=== PATIENT | male | born 2000 | race Caucasian/White ===

== ENCOUNTER 2023-08-06 18:52 | Emergency (ER) | payer BC ==
[2023-08-06 20:11] LABS: BASO # 0.01 K/mm3 (0.02-0.10); EOS # 0.12 K/mm3 (0.04-0.40); EOS % 1.9 % (0.0-4.0); HEMATOCRIT 45.1 % (42.0-52.0); HEMOGLOBIN 16.2 g/dL (13.5-18.0); LYMPH# 1.54 K/mm3 (1.50-4.00); MEAN CELL VOLUME 84 fl (78-100); MEAN CORPUSCULAR HEMOGLOBIN 30 pg (27-31); MEAN CORPUSCULAR HGB CONC 36 g/dL (33-37); MEAN PLATELET VOLUME 8.9 fl (7.4-10.4); MONO # 0.42 K/mm3 (0.20-0.80); NEU # 4.25 K/mm3 (1.40-6.50); PLATELET COUNT 235 K/mm3 (130-400); RED CELL DISTRIBUTION WIDTH 11.6 % (11.5-14.5); WHITE BLOOD COUNT 6.4 K/mm3 (4.8-10.8)
[2023-08-06 20:24] LABS: ALBUMIN 4.8 g/dL (3.5-5.0); SODIUM 141 mmol/L (136-145)
[2023-08-06 20:26] LABS: GLUCOSE 97 mg/dL (75-110); TOTAL PROTEIN 7.4 g/dL (6.4-8.3)
[2023-08-06 20:27] LABS: CARBON DIOXIDE 26 mmol/L (22-29)
[2023-08-06 20:28] LABS: TOTAL BILIRUBIN 0.64 mg/dL (0.2-1.2)
[2023-08-06 20:32] LABS: AST-SGOT 23 U/L (5-34)
[2023-08-06 20:33] LABS: ALT/SGPT 42 U/L (0-55)
[2023-08-06 20:40] LABS: TROPONIN-I < 0.030 ng/mL (0.00-0.033)
[2023-08-06 21:49] VITALS: BP 131/87
[2023-08-07 00:29] LABS: D-DIMER 0.2 mg/L FEU (0.15-0.50)
== END 2023-08-06 21:51 | disposition home or self-care (01) ==
LOC: ED 18:52
PROVIDERS: Physician Assistant
DX: M94.0 Chondrocostal junction syndrome [Tietze] (principal)